=== PATIENT | male | born 1970 | race Two or more races ===

== ENCOUNTER 2025-01-19 14:05 | Outpatient (REF) | payer SELFPAY ==
--- OUTSIDE RECORDS SUMMARY | 2025-01-19 15:34 | XMS_ITS | Encounter Summary ---
Author Organization [facility] Address [address] [place] [address] Care Team Providers Care Tax Appraiser Name Role Phone Annemarie Morales DO Primary Care Provider Reason for Referral * Consultation (Urgent) - Pending Review Specialty Diagnoses / Procedures Referred By Roxy pal Referred To Contact General Surgery Diagnoses Right inguinal hernia Annemarie Morales DO [address] [place] [address] Phone: tel: fax: Referral ID Status Reason Start Date Expiration Date Visits Requested Visits Authorized [id number] Pending Review Specialty Services Required 01/19/2025 01/19/2026 1 1 Reason for Visit * Reason Comments Hernia Encounter Details Date Type Department Care Team (Latest Contact Info) Description 01/19/2025 1:00 PM EDT Office Visit [facility] [address] [place], [place] [id number] Essential hypertension (Primary Dx); Right inguinal hernia; Chronic gastroesophageal reflux disease Social History Tobacco Use Types Packs/Day Years Used Date Smoking Tobacco: Never Smokeless Tobacco: Never Tobacco Cessation:Counseling Given: Not Answered Sex and Gender Information Value Date Recorded Sex Assigned at Male 01/19/2025 12:33 PM EDT Legal Sex Male 12:26 PM EDT Gender Identity Male 01/19/2025 12:33 PM EDT Sexual Orientation Straight 01/19/2025 12 :34 PM EDT documented as of this encounter Last Filed Vital Signs Vital Sign Reading Time Taken Comments Blood Pressure 162/104 01/19/2025 2:16 PM EDT Pulse 96 01/19/2025 12:54 PM EDT Temperature 36.8 ??C (98.2 ??F) 01/19/2025 12:54 PM E DT Respiratory Rate 17 01/19/2025 12:54 PM EDT Oxygen Saturation 95% 01/19/2025 12:54 PM EDT Inhaled Oxygen Concentration - - Weight 80.5 kg (177 lb 6.4 oz) 01/19/2025 12:54 PM EDT Height - - Body Mass Index - - documented in this encounter Plan of Treatment Upcoming Encounters Date Type Department Care Team (Late st Contact Info) Description 02/02/2025 1:00 PM EDT Clinical Support [facility] [address] [place] [id number] Scheduled Orders Name Type Priority Associated Diagnoses Orde r Schedule T4, Free Lab Routine Essential hypertension Expected: 01/19/2025 (Approximate), Expires: 01/19/2026 Vitamin D, 25-Hydroxy, Total, Immunoassay Lab Routine Essential hypertension Expected: 01/19/2025 (Approximate), Expires: 01/19/2026 Lipid Panel, Standard Lab Routine Essential hypertension Expected: 01/19/2025 (Approximate), Expires: 01/19/2026 TSH Lab Routine Essential hypertension Expected: 01/19/2025 (Approximate), Expires: 01/19/2026 Hepatic Function Panel Lab Routine Essential hypertension Expected: 01/19/2025 (Approximate), Expires: 01/19/2026 Hemoglobin A1c Lab Routine Essential hypertension Expected: 01/19/2025 (Approximate), Expires: 01/19/2026 Basic Metabolic Panel Lab Routine Essential hypertension Expected: 01/19/2025 (Approximate), Expires: 01/19/2026 CBC Lab Routine Essential hypertension Expected: 01/19/2025, Expires: 01/19/2026 Albumin, Random Urine W/Creatinine Lab Routine Essential hypertension Expected: 01/19/2025 (Approximate), Expires: 01/19/2026 Hepatitis B surface antigen, EIA Lab Routine Essential hypertension Expected: 01/19/2025 (Approximate), Expires: 01/19/2026 Chlamydia/N. Gonorrhoeae RNA, TMA, Urogenitial Microbiology Routine Essential hypertension Ordered: 01/19/2025 HIV-1/2 Antigen and Antibodies, Fourth Generation, with Reflexes Lab Routine Essential hypertension Expected: 01/19/2025 (Approximate), Expires: 01/19/2026 Hepatitis C Antibody with Reflex to HCV, RNA, Quantitative, Real-Time PCR Lab Routine Essential hypertension Expected: 01/19/2025, Expires: 01/19/2026 RPR (Monitor) with Reflex to??Titer Lab Routine Essential hypertension Expected: 01/19/2025, Expires: 01/19/2026 Hepatitis B Surface Antibody, Qualitative Lab Routine Essential hypertension Expected: 01/19/2025 (Approximate), Expires: 01/19/2026 Hepatitis A Antibody, Total Lab Routine Essential hypertension Expected: 01/19/2025 (Approximate), Expires: 01/19/2026 Hepatitis B Core Antibody, Total Lab Routine Essential hypertension Expected: 01/19/2025 (Approximate), Expires: 01/19/2026 Scheduled Referrals Name Type Priority Associated Diagnoses Orde r Schedule Referral to General Surgery Outpatient Referral Urgent Right inguinal hernia Expected: 01/19/2025 (Approximate), Expires: 01/19/2026 documented as of this encounter Visit Diagnoses Diagnosis Essential hypertension- Primary Unspecified essential hypertension Right inguinal hernia Inguinal hernia without mention of obstruction or gangrene, unilateral or unspecified, (not specified as recurrent) Chronic gastroesophageal reflux disease documented in this encounter Care Teams Tax Appraiser Relationship Specialty Start Date End Date Annemarie Morales DO [address] [place] [id number] PCP - General Family Medicine 01/19/25 documented as of this encounter
--- OUTSIDE RECORDS SUMMARY | 2025-01-19 15:34 | XMS_ITS | Clinical Summary ---
Author Organization [employer] Address [address] [place] [address] Care Team Providers Care Cyber Analyst Name Role Phone CarmenAnnemarie Primary Care Provider Allergies No known active allergies Medications losartan (Cozaar) 25 MG tablet Take 1 tablet (25 mg) by mouth Once per day. 30 tablet 3 01/19/2025 6 Active acetaminophen (Tylenol 8 Hour) 650 MG ER tablet Take 1 tablet (650 mg) by mouth every 8 (eight) hours if needed for mild pain. Do not crush, chew, or split. 40 tablet 1 01/19/2025 5 Active omeprazole OTC (PriLOSEC OTC) 20 MG EC tablet Take 1 tablet (20 mg) by mouth before breakfast. Do not crush, chew, or split. 30 tablet 3 01/19/2025 6 Active Blood Pressure kit 1 each 1 (one) time per week. 1 kit 01/19/2025 Active Active Problems Problem Noted Date Diagnosed Date Chronic gastroesophageal reflux disease 01/20/20 25 Allergic rhinitis 01/19/2025 Essential hypertension 01/19/2025 Encounters Date Type Department Care Team Description 01/19/2025 1:00 PM EDT Office Visit [facility] [address] [id number] Essential hypertension (Primary Dx); Right inguinal hernia; Chronic gastroesophageal reflux disease 01/19/2025 Travel from Last 3 Months Social History Tobacco Use Types Packs/Day Years Used Date Smoking Tobacco: Never Smokeless Tobacco: Never Tobacco Cessation:Counseling Given: Not Answered Sex and Gender Information Value Date Recorded Sex Assigned at Male 01/19/2025 12:33 PM EDT Legal Sex Male 12:26 PM EDT Gender Identity Male 01/19/2025 12:33 PM EDT Sexual Orientation Straight 01/19/2025 12 :34 PM EDT Last Filed Vital Signs Vital Sign Reading [...] - - Body Mass Index - - Plan of Treatment Upcoming Encounters Date Type Department Care Team (Late st Contact Info) Description 02/02/2025 1:00 PM EDT Clinical Support [address] [address] Health Maintenance Due Date Last Done Comments CT Colonography 1972 Colonoscopy 1972 Colorectal Cancer Screening 1972 Depression Screening 1972 FIT DNA/Cologuard 1972 FIT 1972 FOBT 1972 HIV Screening 1972 Lipid Panel 1972 SDOH Screening 1972 Sigmoidoscopy 1972 Alcohol/Substance Use Screening 1984 Family Planning (PISQ) 1987 Hepatitis C Screening 1990 DTaP/Tdap/Td Vaccines (1 - Tdap) 1991 Hepatitis B Vaccines (1 of 3 - 19+ 3-dose series) 1991 Pneumococcal Vaccine: 50+ Ye ars (1 of 1 - PCV) 2022 Zoster Vaccines (1 of 2) 2022 COVID-19 Vaccine ( - 2023-2 5 season) 2024 Influenza Vaccine (#1) 2024 Tobacco Screening 01/19/2026 01/19/2025 RSV Patients and Pa tients Aged 60 years or older (1 - 1-dose 75+ series) 2047 HIB Vaccines Aged Out No longer eligi ble based on patient's age to complete this topic HPV Vaccines Aged Out No longer eligi ble based on patient's age to complete this topic Hepatitis A Vaccines Aged Out No long er eligible based on patient's age to complete this topic IPV Vaccines Aged Out No longer eligi ble based on patient's age to complete this topic Meningococcal Vaccine Aged Out No domenica sandra eligible based on patient's age to complete this topic RSV under 20 months Aged Out No longe r eligible based on patient's age to complete this topic Rotavirus Vaccines Aged Out No longer eligible based on patient's age to complete this topic Insurance [facility] FULL Care Teams Cyber Analyst Relationship Specialty Start Date End Date Annemarie Morales DO [address] [place] [phone] PCP - General Family Medicine 01/19/25
--- OUTSIDE RECORDS SUMMARY | 2025-01-19 15:34 | XMS_ITS | Encounter Summary ---
Author Organization [facility] Address [address] [place] [address] Care Team Providers Care Knockdown Worker Name Role Phone Annemarie Morales DO Primary Care Provider [phone] Encounter Details Date Type Department Care Team (Latest Contact Info) Description 01/19/2025 Travel Social History Tobacco Use Types Packs/Day Years Used Date Smoking Tobacco: Never Smokeless Tobacco: Never Sex and Gender Information Value Date Recorded Sex Assigned at Male 01/19/2025 12:33 PM EDT Legal Sex Male 12:26 PM EDT Gender Identity Male 01/19/2025 12:33 PM EDT Sexual Orientation Straight 01/19/2025 12 :34 PM EDT documented as of this encounter Plan of Treatment Upcoming Encounters Date Type Department Care Team (Late st Contact Info) Description 02/02/2025 1:00 PM EDT Clinical Support [facility] [address] [place] [address] documented as of this encounter Visit Diagnoses Not on filedocumented in this encounter Care Teams Knockdown Worker Relationship Specialty Start Date End Date Annemarie Morales DO [address] [place] [address] PCP - General Family Medicine 01/19/25 documented as of this encounter
[2025-01-19 16:41] LABS: Hematocrit 48.4 % (42.0-52.0); Hemoglobin 16.7 g/dl (14.0-18.0); Mean Corpuscular HGB Conc 34.5 g/dl (31.0-36.0); Mean Corpuscular Hemoglobin 30.8 pg (27.0-33.0); Mean Corpuscular Volume 89.3 fL (80.0-98.0); Mean Platelet Volume 10.4 fL (9.4-12.4); Platelet Count 291 X10*3/uL (160-400); Red Blood Count 5.42 X10*6/uL (4.60-5.80); Red Cell Distribution Width 12.6 % (11.0-16.0); White Blood Count 6.5 X10*3/uL (4.8-10.8)
[2025-01-19 16:43] LABS: Estimated Average Glucose 103 mg/dL; Hemoglobin A1C 148.0121 umol/L; Hemoglobin A1c % 5.2 % (<6.0); Total Hemoglobin (HGBA1C) 4409.9321 umol/L
[2025-01-19 16:50] LABS: Alanine Aminotransferase 50 U/L (0-40); Albumin Level 4.5 g/dL (3.5-5.0); Alkaline Phosphatase 94 U/L (39-117); Anion Gap 12 (12-20); Aspartate Amino Transferase 34 U/L (5-37); Bilirubin Direct 0.2 mg/dL (0.0-0.5); Bilirubin Total 0.4 mg/dL (0.0-1.0); Blood Urea Nitrogen 11 mg/dL (9-16); Carbon Dioxide 29 mmol/L (22-29); Chloride 104 mmol/L (96-108); Cholesterol 184 mg/dL (<200); Estimated Glomerular Filt Rate > 60; Glucose Random 91 mg/dL (60-115); HDL Cholesterol 44 mg/dL (>40); LDL Cholesterol Calculated 107 mg/dL (<100); Potassium 3.8 mmol/L (3.3-5.1); Sodium 141 mmol/L (135-145); Total Protein 8.1 g/dL (6.5-8.0); Triglycerides 169 mg/dL (<150)
[2025-01-19 16:56] LABS: Creatinine Urine 188.74 mg/dL; Microalbum/Creatinine Ratio Ur 30.7 ug/mg cr (<30)
[2025-01-19 17:06] LABS: Free T4 (Free Thyroxine) 0.92 ng/dL (0.71-1.85); Thyroid Stimulating Hormone 2.39 uIU/mL (0.32-4.0); Vitamin D 25-OH Total 40.3 ng/mL (>30)
[2025-01-20 02:32] LABS: CT PCR NOT DETECTED (Not Detect.); NG PCR NOT DETECTED (Not Detect.)
[2025-01-20 08:12] LABS: HBc Num1 0.09 S/CO (0.00-0.79); HBsAGNum1 0.32 S/CO (0.00-0.99); HIV AB/AG Nonreactive (Nonreactive); HIV Num 1 0.14 S/CO (0.00-0.99); Hepatitis B Core Antibody Nonreactive (Nonreactive); Hepatitis B Surface Antigen Negative (Negative); ~HepC Num1 0.27 S/CO (0.00-0.79); ~Hepatitis B Surface Antibody REACTIVE (Nonreactive); ~Hepatitis C Antibody Nonreactive (Nonreactive)
[2025-01-22 18:48] LABS: RPR Rapid Plasma Reagin NON-REACTIVE (NON-REACTIVE)
[2025-01-25 04:43] LABS: Hepatitis A Antibody IgG Nonreactive (Nonreactive); ~Hepatitis A Antibody IgG 0.22 S/CO (0.00-0.99)
== END 2025-01-19 14:06 | disposition home or self-care (01) ==
LOC: HO.HHCL 14:05
PROVIDERS: Visit Provider Family Medicine
DX: I10 Essential (primary) hypertension (principal); Z13.1 Encounter for screening for diabetes mellitus
CPT/HCPCS: 80048; 80061; 80076; 82043; 82306; 82570; 83036; 84439; 84443; 85027; 86592; 86704; 86706; 86708; 86803; 87340; 87389; 87491; 87591